=== PATIENT | female | born 2000 | race Caucasian/White ===

== ENCOUNTER 2019-04-05 17:35 | Emergency (ER) | payer OTHER ==
[2019-04-05 17:56] VITALS: BP 120/77; PULSE 92; TEMP 97.8; BMI 30.9
--- NOTE | 2019-04-05 20:05 | PDOC ---
History of Present Illness - General Chief Complaint: Pain Stated Complaint: RIGHT/WRIST/DISCOMFORT Time Seen by Provider: 04/05/19 18:03 History Source: Patient Exam Limitations: No Limitations - History of Present Illness Initial Comments: 04/05/19 18:41 HISTORY OF PRESENT ILLNESS: 18-year-old otherwise healthy girl presents emergency department for evaluation of atraumatic right wrist pain over the past 2 to 3 weeks. 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 Patient reports increased pain when carrying trays with her right hand or when she tries to push off to get out of bed. Patient reports as a child she sprained her wrist and is concerned that the previous wrist sprain is the cause of her current pain. No recent travel or sick contacts. PAST MEDICAL HISTORY: Denies past medical history SURGICAL HISTORY: Denies ALLERGIES: No known drug allergies REVIEW OF SYSTEMS General/Constitutional: Denies fever or chills. Denies weakness, weight change. HEENT: Denies change in vision. Denies ear pain or discharge. Denies sore throat. Cardiovascular: Denies chest pain or shortness of breath. Respiratory: Denies cough, wheezing, or hemoptysis. Gastrointestinal: Denies nausea, vomiting, diarrhea or constipation. Denies rectal bleeding. Genitourinary: Denies dysuria, frequency, or change in urination. Musculoskeletal: See HPI Skin and breasts: Denies rash or easy bruising. Neurologic: Denies headache, vertigo, loss of consciousness, or loss of sensation. Psychiatric: Denies depression or anxiety. Endocrine: Denies increased thirst. Denies abnormal weight change. Hematologic/Lymphatic: Denies anemia, easy bleeding, or history of blood clots. Allergic/Immunologic: Denies hives or skin allergy. Denies latex allergy. PHYSICAL EXAM General Appearance: Well-appearing, appropriately dressed. No apparent distress , no intoxication. Vascular Pulses: Radial (R): 2+, radial (L): 2+ Musculoskeletal/Extremities: Normal inspection. FROM of all extremities, normal capillary refill. Pelvis Stable. No CVA tenderness. No tenderness to extremities, pedal edema, swelling, erythema or deformity. Negative Tinel test. Negative Phalen's test Integumentary: Appropriate color, dry, warm. No cyanosis, erythema, jaundice or rash Neurologic: reconciliation accountant II-XII intact. Fully oriented, alert. Appropriate mood/affect. Motor strength 5/5. No appreciable EOM palsy, facial droop or sensory deficit. Past History - Past Medical History Allergies/Adverse Reactions: Allergies Allergy/AdvReac Type Severity Reaction Status Date / Time No Known Allergies Allergy Verified 04/05/19 17:53 - Psycho Social/Smoking Cessation Hx Smoking History: Never smoked Drug/Substance Use Hx: Yes (LAST USE 1M AGO) *Physical Exam - Vital Signs Last Vital Signs Temp Pulse Resp BP Pulse Ox 97.8 F 92 H 16 120/77 100 04/05/19 17:54 04/05/19 17:54 04/05/19 17:54 04/05/19 17:54 04/05/19 17:54 Medical Decision Making - Medical Decision Making 04/05/19 18:39 A/P: 18-year-old girl with atraumatic right wrist pain worsening over the past week No bony tenderness, deformity, crepitus or step-off is present. Full range of motion of right wrist without difficulty. 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 Aakash wrap to the wrist Discharge home with orthopedic follow-up I discussed the physical exam findings, ancillary test results and final diagnoses with the patient. I answered all of the patient's questions. The patient was satisfied with the care received and felt comfortable with the discharge plan and treatment plan. The patient will call their primary care physician within 24 hours to arrange follow-up and will return to the Emergency Department with any new, persistent or worsening symptoms. Portions of this note have been documented using voice recognition software. As a result, errors may occur in the leather products supervisor process. Effort has been made to correct all grammatical and leather products supervisor error, but some may have been missed which may produce sporadic inaccurate leather products supervisor or nonsensical phrases. Discharge - Discharge Information Problems reviewed: Yes Clinical Impression/Diagnosis: Wrist pain, right Condition: Stable Disposition: HOME - Admission No - Follow up/Referral Referrals: Eric Garrett DO [Staff Physician] - - Patient Discharge Instructions Additional Instructions: You be given a referral for an orthopedist. Call to schedule appointment for reevaluation of your pain. Your emergency department visit is incomplete until you follow-up with your regular doctor. Take Tylenol 2-500 mg tablets every 6 hours as needed for pain. Take Motrin 3-200 mg tablets every 6 hours as needed for pain. These medications do not require a prescription as they are [id number]. Apply ice to affected areas to help relieve pain. Do not leave ice on for more than 20 minutes at a time. Return to the emergency department for any new or worsening symptoms. Thank you very much for choosing us to provide your emergent health care needs. - Post Discharge Activity Work/Back to School Note: Back to Work
== END 2019-04-05 18:44 | disposition home or self-care (01) ==
LOC: JERFT 17:35
PROC: 2W3CXYZ Immobilization of Right Lower Arm using Other Device (ICD-10-PCS; principal; 2019-04-05)
DX: M25.531 Pain in right wrist (principal)
CPT/HCPCS: 29540; 99282-25